=== PATIENT | male | born 1970 | race Caucasian/White ===

== ENCOUNTER 2017-05-21 07:48 | Emergency (ER) | payer OTHER ==
--- NOTE | ~2017-05-21 | CR72 ---
[facility]. [facility] A Service of [facility] & [facility] RADIOLOGY TEXT RESULTS PATIENT: ECHO ARAIZA LOCATION: SED : 74 UNIT #: [id number] AGE: [address]: Theresa Morrow MD SEX: M ORDER DR: [id number] [place] [address] [id number] E MR#: [id number] Acc #: [id number] NAME: ECHO ARAIZA : 1970 SEX: M STUDY DATE/TIME: 05/21/2017 8:20 UNIT: SED ROOM: STUDY DESCRIPTION: CR Chest Single View Portable Attending Physician: Theresa Morrow M.D. Ordering Physician: Theresa Morrow M.D. Primary Care Physician: Goldy Castillo M.D. MEDICAL IMAGING REPORT This report is preliminary unless electronic signature is present. EXAM Portable chest. INDICATION Chest pain this morning. COMPARISON 11/19/2009 FINDINGS Low-volume inspiration. No definite acute infiltrate. Heart size stable accounting for differences in technique and inspiratory volume. IMPRESSION No active disease. Dictated by... Sathya Tabares M.D. THIS IS AN ELECTRONICALLY VERIFIED REPORT Sathya Tabares M.D. at 05/21/2017 12:23 PM [email or web address]/[email or web address] TD: 05/21/2017 09:26 JOB #: [id number] MEDICAL IMAGING REPORT Page 1 of 1
--- NOTE | ~2017-05-21 | EKG ---
PATIENT: ECHO ARAIZA UNIT #: [id number] Ventricular Rate: 65 BPM Atrial Rate: 65 BPM P-R Interval: 164 ms QRS Duration: 106 ms Q-T Interval: 410 ms QTC Calculation(Bezet): 426 ms P [place]: 21 degrees Calculated R [place]: -8 degrees Calculated T [place]: 26 degrees Diagnosis Line: Normal sinus rhythm with sinus arrhythmia Diagnosis Line: Moderate voltage criteria for LVH, may be normal Diagnosis Line: variant Diagnosis Line: Borderline ECG Diagnosis Line: Confirmed by MARIVEL HATFIELD MD ([id number]) on Diagnosis Line: 05/22/2017 2:54:51 PM INTERPRETING MD: [email or web address]
[~2017-05-21 07:48] MED LIST: ANDROGEL5 GM TD; BACITRACIN30 GM TOP; FLEXERIL PO; LORTAB 7.5-5001 TAB PO; MEDROL PO; MUSCLE RELAXERS; NAPROSYN500 MG PO; OXYCONTIN20 MG PO; PRAVACHOL10 MG PO; PRILOSEC20 M1 PO; PRINIVIL20 M1 PO; VICODIN 5/500 T1 TAB PO; ZOVIRAX800 MG PO
[2017-05-21] MEDS ORDERED: HYDROCODON-ACE1 EAC5 PO (08:04)
[2017-05-21 08:25] LABS: BASOPHIL# 0.1 X10e3 (0-0.3); BASOPHIL% 0.8 % (0-2.5); EOSINOPHIL# 0.3 X10e3 (0-0.7); EOSINOPHIL% 4.1 % (0.0-7.0); HEMATOCRIT 46.8 % (38.0-50.0); LYMPHOCYTE# 2.1 X10e3 (1.0-3.5); LYMPHOCYTE% 31.9 % (17.0-45.0); MEAN CELL VOLUME 89.2 FL (83-96); MEAN CORPUSCULAR HEMOGLOBIN 30.6 PG (28-34); MEAN CORPUSCULAR HGB CONC 34.3 g/dL (30-36); MEAN PLATELET VOLUME 8.6 FL (6.5-11.5); MONOCYTE# 0.6 X10e3 (0-1.0); MONOCYTE% 8.5 % (3.0-12.0); NEUTROPHIL# 3.6 X10e3 (1.5-7.1); NEUTROPHIL% 54.7 % (40-75); PLATELET COUNT 199 X10e3 (140-420); RED BLOOD COUNT 5.24 X10e (3.90-5.60); RED CELL DISTRIBUTION WIDTH 13.7 % (11.0-15.5); WHITE BLOOD COUNT 6.7 X10e3 (4.0-10.5)
[2017-05-21 08:32] LABS: DIFF IND NO
[2017-05-21 08:38] LABS: PROTHROMBIN TIME (PATIENT) 11.8 SECONDS (9.5-12.4)
[2017-05-21 08:45] LABS: PARTIAL THROMBOPLASTIN TIME 28.5 SECONDS (25.6-38.1)
[2017-05-21 08:46] LABS: ALBUMIN SERUM 4.4 g/dL (3.5-5.0); BILIRUBIN, DIRECT 0.1 mg/dL (0.0-0.2); BILIRUBIN,INDIRECT 0.5 mg/dL (0.0-0.9); BILIRUBIN,TOTAL 0.6 mg/dL (0.2-2.0); CALCIUM SERUM 8.9 mg/dL (8.4-10.2); GLOM FILT RATE Estimated 91.1 mL/min (>60); POTASSIUM 3.8 mmol/L (3.5-5.1); PROTEIN TOTAL SERUM 7.3 g/dL (6.0-8.3)
[2017-05-21 08:59] LABS: DDIMER <200 NG/ML (0-200)
[2017-05-21 11:15] LABS: POC - CKMB 1.7 ng/mL (0.0-7.9)
[2017-05-21 11:16] LABS: POC - TROPONIN <0.05 ng/mL (<=0.05)
[2017-05-21 11:17] LABS: POC - CKMB <1.0 ng/mL (0.0-7.9); POC - TROPONIN <0.05 ng/mL (<=0.05)
== END 2017-05-21 13:31 ==
LOC: SED 07:48
PROVIDERS: Emergency Medicine
DX: R07.9 Chest pain, unspecified (principal); E78.5 Hyperlipidemia, unspecified; I10 Essential (primary) hypertension; Z79.899 Other long term (current) drug therapy
CPT/HCPCS: 36415; 71010; 80048; 80076; 82553; 84484; 85025; 85379; 85610; 85730; 93005; 99285